=== PATIENT | male | born 1955 | race Caucasian/White ===

== ENCOUNTER 2018-12-24 07:41 | Inpatient (IN) | payer OTHER ==
[~2018-12-24] VITALS: Ht 177.8 cm; Wt 83.0 kg
[~2018-12-24 07:41] MED LIST: ABAC300; ALBU90OI; AMLO5; COZAAR PO; DOCU100 PO; Diovan320 MG; ENOX40I SC; ESCI10 PO; HYDACE5 PO; LISI10 PO; LORA.5 PO; LORA10; METF500; METFORMIN PO; OXYC1TAB11; SERT50; SIMV10 PO
[2018-12-24 08:00] LABS: Calcium, Ionized (POC) 1.17 mmol/L (1.10-1.46); Chloride (POC) 101 mmol/L (98-108); Creatinine (POC) 0.5 mg/dL (0.8-1.3); Glucose (ISTAT POC) 417 mg/dL (70-99); Potassium (POC) 3.8 mmol/L (3.5-5.5); Sodium (POC) 135 mmol/L (135-148); Total CO2 (POC) 22 mmol/L (21-32)
[2018-12-24 08:07] LABS: Hematocrit 44.8 % (37.0-53.0); Mean Corpuscular HGB 30.9 pg (26.0-34.0); Mean Corpuscular HGB Conc 35.7 g/dL (31.5-36.5); Mean Corpuscular Volume 87 fL (80-100); Mean Platelet Volume 8.9 fL (9.1-12.4); Platelet Count 312 K/mm3 (150-400); RDW Coefficient Variation 11.8 % (11.7-14.2); RDW Standard Deviation 37.4 fL (35.1-46.3); Red Blood Cell Count 5.18 M/mm3 (4.30-5.90); White Blood Cell Count 9.08 K/mm3 (4.00-11.30)
[2018-12-24] MEDS ORDERED: Metformin HCl1000 MG PO (08:17)
[2018-12-24 08:22] LABS: International Normalized Ratio 0.96; Prothrombin Time Results 10.2 Sec (9.7-11.5)
[2018-12-24 08:33] LABS: Alanine Aminotransfer (ALT/SGP 35 U/L (12-78); Albumin, Blood 3.7 g/dL (3.4-5.0); Albumin/Globulin Ratio 0.9 (0.8-1.8); Alk Phos 63 U/L (50-136); Anion Gap 11 mmol/L (6-16); Aspartate Aminotrans (AST/SGOT 24 U/L (12-37); Bilirubin, Total 0.7 mg/dL (0.1-1.0); Blood Urea Nitrogen 15 mg/dL (8-24); Bun/Creatinine Ratio 26.4 (12.0-20.0); CO2, Blood 22 mmol/L (21-32); Calcium, Blood 9.3 mg/dL (8.5-10.1); Chloride, Blood 101 mmol/L (98-108); Cholesterol 266 mg/dL (50-200); Creatinine, Blood 0.57 mg/dL (0.60-1.20); Glomerular Filtration Rate >60 (60-); Glucose, Blood 413 mg/dL (70-99); Magnesium, Blood 1.8 mg/dL (1.6-2.4); Potassium, Blood 3.7 mmol/L (3.5-5.5); Sodium, Blood 134 mmol/L (136-145); Total Protein, Blood 7.7 g/dL (6.4-8.2); Troponin I <0.015 ng/mL (0.000-0.040)
[2018-12-24 08:35] LABS: CHOL/HDL RATIO Unable to Calculate; LDL/HDL RATIO Unable to Calculate; Low Density Lipoprotein Chol Unable to Calculate mg/dL (0-110); Triglycerides 1189 mg/dL (30-160); Very Low Density Lipoprot Chol 238 mg/dL (6-32)
[2018-12-24] MEDS ORDERED: L-ARGININE500 MG PO (10:22)
[2018-12-24] MEDS ORDERED: VITAMIN D5000 UNI1 PO (10:23)
[2018-12-24] MEDS ORDERED: SELENIUM200 MCG PO (10:26)
--- NOTE | 2018-12-24 10:30 | NUR ---
ARIVAL TO THE UNIT: PT [facility] AT APPROX 1005, APPEARS TO BE A/O X 3, BUT DROUSY. URINAL INBETWEEN LEGS. RECEIVED REPORT FROM HC STAFF. STENTS PLACED WERE 1 TO THE OM, 1 TO THE LAD, 1 TO THE PROX CIRC AND PT HAS TOTAL OCCULTION TO THE RCA. TR BAND WAS NOTED TO BE IN GOOD WORKING ORDER INFLATED WITH 11CC AT APPROX 1000. NO S/S OF BLEEDING NOTED AT THE SITE, NO REDNESS OR SWELLING NOTED. PT C/O 3/10 CHEST PAIN. NITRO DRIP RUNNING UPON ARIVING WILL TITRATE BP ALLOWS. EDUCATED PT ON THE UNIT AND CALL LIGHT. REVIEWED HEALTH HX. EDUCATED PT ON NEEDING TO TAKE MEDICATIONS DIRECTED.
[2018-12-24 11:45] LABS: Troponin I 0.095 ng/mL (0.000-0.040)
--- NOTE | 2018-12-24 13:57 | NUR ---
CHEST PAIN: PAIN INCREASED TO AN 8/10, 2MG OF MORPHINE GIVEN. PAIN CAME DOWN TO 6/10
--- NOTE | 2018-12-24 14:00 | NUR ---
TR BAND: REMOVED AIR FROM TR BAND AT THIS TIME. LEFT THE BAND ON, WILL REASSESS IN ONE HOUR. SURINGE AT BEDSIDE WITH AIR IN CASE OF EMERGENCY.
--- NOTE | 2018-12-24 14:02 | NUR ---
HIGH GLUCOSE: CALLED LAB FOR GLUCOSE RESULTS FROM 1218 STILL NOT COMPLETE. LAB WILL CALL BACK WHEN COMPLETE.
[2018-12-24 14:28] LABS: Glucose, Blood 529 mg/dL (70-99)
--- NOTE | 2018-12-24 15:00 | NUR ---
RADIAL SITE: TR BAND REMOVED AND TEGADERM PUT IN PLACE OVER PUNCTURE SITE. NO S/S OF BLEEDING NO SWELLING, REDNESS OR TENDERNESS NOTED. PT EDUCATED ON RESTRICTIONS ONCE AGAIN. WILL CONTINUE TO MONITOR.
--- NOTE | 2018-12-24 17:54 | NUR ---
Clinical Visit; Called to room to discuss advance directives. They have shown an interest in filling out paperwork to support wishes. Pt declines any conversation. he states that he is in considerable pain. Pt declines palliative care to leave copy of directive for further review. Updated nurse on conversation.
--- NOTE | 2018-12-24 18:52 | NUR ---
SHIFT SUMMARY: PT HAS CONTINUED TO HAVE CHEST PAIN SINCE RETURNING FROM THE [facility]. NITRO DRIP HAS ASSISTED, BUT HAS NOT ELIMINATED THE PAIN COMPLETELY. IMDUR WAS GIVEN PER ORDERS ALONG WITH MAYLOX. PT HAS SOME FEELINGS OF NAUSEA AND WAS UNABLE TO EAT MORE THAN JELLO OR APPLESAUCE FOR DINNER. BLOOD SUGARS ARE NOTED TO BE VERY HIGH AND INSULIN HAS BEEN GIVEN PER ORDERS. SS OF INSULIN WAS CHANGED FROM LOW SINCE ARIVAL TO THE UNIT, TO HIGH BY THE END OF THE SHIFT. PT STATES FEELING MUCH BETTER THAN PRIOR TO COMING TO THE HOSPITAL, BUT STILL "NOT FEELING WELL". [facility] WAS CALLED TO CONSULT D/T PT AND REQUESTING ASSISTANCE IN COMPLETING AN ADVANCE DIRECTIVE. PT STATES ATTEMPTED TO FILL ONE OUT IN THE PAST, BUT HAD DIFFICULTY UNDERSTANDING. DR BLISS AND THIS RN EDUCATED PT AND FAMILY EXTENSIVLY ON THE NEED TO CONTINUE TAKING MEDICATIONS DIRECTED AND SOME RISKS OF STOPPING. WILL CONTINUE TO MONITOR AND REPORT TO ONCOMING RN.
[2018-12-24 19:04] LABS: Anion Gap 11 mmol/L (6-16); Blood Urea Nitrogen 15 mg/dL (8-24); CO2, Blood 22 mmol/L (21-32); CPK Creatine Kinase 890 U/L (39-308); Calcium, Blood 8.8 mg/dL (8.5-10.1); Chloride, Blood 96 mmol/L (98-108); Creatinine, Blood 0.58 mg/dL (0.60-1.20); Glomerular Filtration Rate >60 (60-); Glucose, Blood 432 mg/dL (70-99); Potassium, Blood 4.3 mmol/L (3.5-5.5); Sodium, Blood 129 mmol/L (136-145)
[2018-12-24 19:21] LABS: Creatine Kinase MB 59.9 ng/mL (0.0-3.6); Creatine Kinase MB Index 6.7 (0.0-4.0)
--- NOTE | 2018-12-24 20:33 | NUR ---
CARE ASSUMED CARE AND REPORT ASSUMED FROM FAITH Ordonez RN. PT SITTING UP IN BED. COMPLAINS OF PERSISTENT NAUSEA FOR FEW HOURS BUT DENIES ANY VOMITING. MD BLISS CALLED AND NOTIFIED OF NAUSEA; T.O. FOR ZOFRAN 4 MG GIVEN AND WAS TOLD TO TITRATE NITRO TO MAINTAIN SBP 110-120. ZOFRAN ADMINISTERED; WILL MONITOR RESPONSE. PT COMPLAINS OF CHEST PAIN AT 4/10 AT THIS TIME. NITRO GTT DECREASED TO 20, AND NOW 15 MCG. SBP 95. WILL MONITOR CHEST PAIN AND BP. R RADIAL SITE CLEAN, DRY, INTACT WITH SOME SURROUNDING BRUISING. R ARM IN ARMBOARD. INSULIN GIVEN THIS EVENING FOR BLOOD SUGAR CONTROL. CALL LIGHT WITHIN REACH. NSR, HR 70S. WILL CONTINUE TO MONITOR.
--- NOTE | 2018-12-24 23:31 | NUR ---
REASSESSMENT PT SLEEPING BUT AWAKENS EASILY. NSR, HR 70S. BP 104/75. NITRO GTT HAS BEEN OFF SINCE 2299. PT STATES HE IS CHEST PAIN FREE AND NAUSEA HAS RESOLVED. AFEBRILE. CALL LIGHT WITHIN REACH. WILL CONTINUE TO MONITOR.
[2018-12-25 03:24] LABS: BASOPHILS ABSOLUTE AUTO 0.01 K/mm3 (0.00-0.23); BASOPHILS PERCENT AUTO 0 % (0-2); EOSINOPHILS ABSOLUTE AUTO 0.02 K/mm3 (0.00-0.68); EOSINOPHILS PERCENT AUTO 0 % (0-6); Hematocrit 39.5 % (37.0-53.0); Hemoglobin 14.1 g/dL (13.5-17.5); IMMATURE GRAN ABSOLUTE AUTO 0.03 K/mm3 (0.00-0.10); IMMATURE GRAN PERCENT AUTO 0 % (0-1); LYMPHOCYTES ABSOLUTE AUTO 1.62 K/mm3 (0.84-5.20); LYMPHOCYTES PERCENT AUTO 12 % (21-46); MONOCYTES ABSOLUTE AUTO 1.27 K/mm3 (0.16-1.47); MONOCYTES PERCENT AUTO 10 % (4-13); Mean Corpuscular HGB 31.8 pg (26.0-34.0); Mean Corpuscular HGB Conc 35.7 g/dL (31.5-36.5); Mean Corpuscular Volume 89 fL (80-100); Mean Platelet Volume 8.8 fL (9.1-12.4); NEUTROPHILS ABSOLUTE AUTO 10.24 K/mm3 (1.96-9.15); NEUTROPHILS PERCENT AUTO 78 % (41-73); Platelet Count 316 K/mm3 (150-400); RDW Coefficient Variation 12.1 % (11.7-14.2); RDW Standard Deviation 39.3 fL (35.1-46.3); Red Blood Cell Count 4.44 M/mm3 (4.30-5.90); White Blood Cell Count 13.19 K/mm3 (4.00-11.30)
--- NOTE | 2018-12-25 03:41 | NUR ---
REASSESSMENT PT REMAINS CHEST PAIN FREE AT THIS TIME. C/O MILD HEADACHE. NITRO GTT HAS BEEN OFF SINCE 2300. R RADIAL SITE REMAINS CLEAN, DRY, INTACT, BUT HAS SOME SURROUNDING SWELLING ON WRIST. NSR, HR 70S. WILL CONTINUE TO MONITOR.
[2018-12-25 03:50] LABS: Alanine Aminotransfer (ALT/SGP 52 U/L (12-78); Albumin, Blood 3.5 g/dL (3.4-5.0); Albumin/Globulin Ratio 0.9 (0.8-1.8); Alk Phos 56 U/L (50-136); Anion Gap 11 mmol/L (6-16); Aspartate Aminotrans (AST/SGOT 277 U/L (12-37); Bilirubin, Total 0.7 mg/dL (0.1-1.0); Blood Urea Nitrogen 20 mg/dL (8-24); Bun/Creatinine Ratio 34.1 (12.0-20.0); CO2, Blood 24 mmol/L (21-32); Calcium, Blood 8.8 mg/dL (8.5-10.1); Chloride, Blood 97 mmol/L (98-108); Cholesterol 271 mg/dL (50-200); Creatinine, Blood 0.59 mg/dL (0.60-1.20); Globulin, Blood 3.9 g/dL (2.2-4.0); Glomerular Filtration Rate >60 (60-); Glucose, Blood 300 mg/dL (70-99); Potassium, Blood 3.7 mmol/L (3.5-5.5); Sodium, Blood 132 mmol/L (136-145); Total Protein, Blood 7.4 g/dL (6.4-8.2)
[2018-12-25 04:08] LABS: CHOL/HDL RATIO Unable to Calculate; CPK Creatine Kinase 1375 U/L (39-308); LDL/HDL RATIO Unable to Calculate; Low Density Lipoprotein Chol Unable to Calculate mg/dL (0-110); Triglycerides 1066 mg/dL (30-160); Very Low Density Lipoprot Chol Unable to Calculate mg/dL (6-32)
[2018-12-25 04:26] LABS: Creatine Kinase MB 130.7 ng/mL (0.0-3.6); Creatine Kinase MB Index 9.5 (0.0-4.0)
--- NOTE | 2018-12-25 06:35 | NUR ---
SHIFT SUMMARY PT SLEPT MOST OF NIGHT. NITRO GTT TURNED OFF AT 2300 AND BP HAS BEEN WNL SINCE THEN. R RADIAL SIGHT HAS BEEN CLEAN AND DRY AND ARM REMAINED IN ARMBOARD ENTIRE SHIFT. ZOFRAN GIVEN AT START OF SHIFT; NAUSEA RESOLVED SHORTLY AFTER. STATED CHEST PAIN IMPROVED AT APPROX 0000. ADJUSTS SELF IN BED. IV SALINE LOCKED. REMAINED IN NSR ENTIRE SHIFT, HR 70-80S. TYLENOL PO GIVEN THIS AM FOR C/O MILD HEADAHCE. WILL GIVE BEDSIDE, HANDOFF REPORT TO DAY RN.
--- NOTE | 2018-12-25 06:45 | NUR ---
SHIFT SUMMARY PT REMAINED INTUBATED ENTIRE SHIFT. 2 SEDATION VACATIONS DURING SHIFT AND 15 MINUTE WEAN DONE DURING 2ND VACATION; SEE NOTE. UNRESPONSIVE ENTIRE SHIFT. WHEN OFF SEDATION, PT HAS SPASTIC MUSCULOSKELETAL MOVEMENTS. DURING ORAL CARE, PT CLENCHES TEETH AND SLIGHTLY MOVES HEAD SIDE TO SIDE. NO PURPOSEFUL MOVEMENTS. HAS REMAINED IN NSR, HR 80-90S. BP ELEVATED DURING SHIFT. NITRO GTT INFUSED ENTIRE SHIFT AT 200 MCG. PROPOFOL NOW INFUSING AT 15 MCG. TOLERATING TF AT GOAL RATE, RESIDUALS 240, 100, AND 100. NO RESTRAINTS; PT DOES NOT ATTEMPT IN ANY WAY TO REACH WITH UPPER EXTREMITIES. BED BATH AND LINEN CHANGE COMPLETED. CPT DONE FEW TIMES DURING NIGHT TOLERATED. PT HAD 4 SOFT, TARRY BOWEL MOVEMENTS. RECTAL TUBE INSERTED AT 0630. FAMILY SLEPT AT BEDSIDE. ANURIC DURING NIGHT; 50 ML FROM BRAR CATH. WILL GIVE BEDSIDE, HANDOFF REPORT TO DAY RN.
--- NOTE | 2018-12-25 07:45 | NUR ---
AM ASSESSMENT: PT IS ALERT AND ORIENTED X3. PLEASANT AND COOPERATIVE WITH CARE. APPEARS ANXIOUS AT TIMES RE: BEING THE HOSPITAL/MEDICAL CONDITION/AMT OF MEDICATIONS HE WILL BE DISCHARGED HOME ON. SPOKE WITH PT AND AT LENGTH RE: IMPORTANCE OF MEDICATIONS COMPLIANCE, ILL AFFECTS OF UNMANAGED DIABETES, MEDICATIONS, CURRENT CONDITION, AND F/U CARE NEEDED. LUNGS ARE CLEAR T/O BILATERALLY. SP02 SATS >90% ON RA. HR REGULAR, SR-60'S RANGE. PT DENIES ANY CHEST PAIN/PRESSURE. PT HAS POOR TO FAIR APPETITE AND REPORTS IT IS R/T BEING EMBARASSED TO HAVE A BM AT THE HOSPITAL, BUT REPORTS HE HASN'T FELT HUNGRY SINCE NAUSEA OCCURRED ON NOC SHIFT. PT DENIES ANY CURRENT NAUSEA. -FULL CODE -MONITOR CARDIAC STATUS, TNX TO PCU IF TROPONINS TRENDING DOWN AND PT CHEST PAIN FREE. -CBG'S AC/HS
[2018-12-25 09:19] LABS: Creatine Kinase MB 71.3 ng/mL (0.0-3.6)
[2018-12-25 09:33] LABS: Creatine Kinase MB Index 5.7 (0.0-4.0); Troponin I 52.9 ng/mL (0.000-0.040)
--- NOTE | 2018-12-25 10:39 | NUR ---
PT UPDATE: TROPONIN REMAINS CRITICAL, HOWEVER, TRENDING DOWN. WILL CONTINUE TO MONITOR TROPONIN, CK/MB. PT CHANGED TO PCU STATUS, PER DR BLISS.
--- NOTE | 2018-12-25 12:06 | NUR ---
PT UPDATE: PT REMAINS CHEST PAIN/PRESSURE FREE. PT REPORTS MILD, INTERMITTENT NAUSEA, BUT DENIES ANY AT THIS CURRENT TIME. PT REPORTS HEADACHE PAIN 4/10 AT THIS TIME. PT STARTED ON ISOSORBIDE THIS AM AND PT REPORTS HEADACHE PAIN WITH USE OF NTG. AGAIN, TALKED AT LENGTH WITH PT ABOUT NEW MEDICATIONS AND IMPORTANCE OF MEDICATION COMPLIANCE.
--- NOTE | 2018-12-25 16:02 | NUR ---
REPORTED OFF TO NAVYA GREER WHOM WILL ASSUME CARE OF THIS PT. PT TO TRANSFER TO PCU-7.
--- NOTE | 2018-12-25 16:43 | NUR ---
PT AMBULATED TO PCU-7 WITH CHUCK DAVISON. CHART/MEDS/PERSONAL BELONGINGS SENT WITH PT.
--- NOTE | 2018-12-25 16:58 | NUR ---
arrived from ICU, a+o, NSR 72 Pulse, lung sounds clear, wrist site no s/sx of infection or bleeding, cap refil <3 in R hand
[2018-12-25 17:46] LABS: Creatine Kinase MB Index 4.1 (0.0-4.0)
--- NOTE | 2018-12-25 19:07 | NUR ---
A+O, ELEVATED TEMP, TRIED VARIUS NONPHARMALOGICAL INTERVENTIONS THEN TYLENOL, DENIES SWEATS BUT IS FLUSHED HE WAS WHEN HE ARRIVED IN DPT, BRUISING REMAINS ON WRIST FROM SURGERY BUT NO BLEEDING OR TENDERNESS, CALL LIGHT IN REACH, SITTING UP IN BED TALKING ON PHONE, ROOM AIR, SALINE LOCKED
[2018-12-26 01:52] LABS: Creatine Kinase MB 12.8 ng/mL (0.0-3.6); Creatine Kinase MB Index 2.5 (0.0-4.0)
[2018-12-26 01:54] LABS: Troponin I 23.1 ng/mL (0.000-0.040)
--- NOTE | 2018-12-26 04:04 | NUR ---
ASSUMED CARE APPROXIMATELY 1900; PT A&O; INDEPENDENT TO BATHROOM; PT STATES HIS APPETITE HAS IMPROVED SINCE PREVIOUS DAY; BRUISING ON R ARM ANGIO SITE SLIGHTLY IMPROVED; CAP REFILL <3 SEC; O2 SATS >90 ON SECOND DIGIT R HAND; PT DENIES PAIN; TROPONIN RESULTS @ 0115 23.1 TRENDING DOWN; PT ASLEEP FOR SEVERAL HOURS; CALL LIGHT IN REACH; BED IN LOWEST POSITION; BATHROOM LIGHT ON; WILL CONTINUE TO MONITOR AND ASSESS UNTIL HAND OFF TO DAY SHIFT RN.
--- NOTE | 2018-12-26 09:40 | NUR ---
AM NOTE PT ALERT AND OREINTED. DENIED DISCOMFORT EXCEPT BEING TIRED. SR. NO ECTOPY. TALKED ABOUT HOME LIFE. PT STOPPED TAKING ALL HIS MEDICATIONS AND CHECKING CBG IN [place] BECAUSE HE DIDN'T THINK IT WAS DOING HIM ANY GOOD. WE TALKED ABOUT DEPRESSION AND HOPELESSNESS. HE HAS RECENTLY RETIRED AND STOPPED DRIVING D/T ANXIETY. HE FEELS ISOLATED AND LONELY. HE IS TALKING ABOUT FINDING A TIP PUNCHER FLUFF JOB JUST TO GET OUT OF THE HOUSE. TALKED ABOUT HOME CARE AND RIGHT RADIAL TR BAND SITE. CONTINUE POT.
[2018-12-26 15:52] LABS: Source, Urine Clean Catch
[2018-12-26 15:56] LABS: Bilirubin, Urine Neg (Neg); Blood, Urine Neg (Neg); Glucose Qualitative, Urine 4+ (Neg); Ketones, Urine 1+ (Neg); Leukocyte Esterase, Urine Neg (Neg); Nitrite, Urine Neg (Neg); Protein, Urine 3+ (Neg); Urobilinogen, Urine NORM (Normal)
[2018-12-26 16:04] LABS: Appearance, Urine Clear (Clear); Color, Urine Yellow (P-Yellow)
[2018-12-26 16:07] LABS: Red Blood Cells, Urine Rare /hpf (0-2)
[2018-12-26 16:08] LABS: Squamous Epithelial Cells Rare /hpf (Few); White Blood Cells, Urine Rare /hpf (0-5)
[2018-12-26 16:09] LABS: Bacteria Few /hpf; Mucus Light (0-Heavy)
[2018-12-26 16:10] LABS: Hyaline Casts 0-2 /lpf (0-2)
--- NOTE | 2018-12-26 18:30 | NUR ---
EVENING NOTE PT RESTING QUIETLY. SR. NO CP/SOB. VSS. BLOOD SUGARS STILL HIGH BUT BETTER. PT APPETITE HAS RETURNED. HE IS VERY CURIOUS ABOUT [employer] DIET AND LIFE STYLE CHANGES. OFFERED CARDIAC REHAB IN A COUPLE WEEKS. HE IS AGREEABLE. 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 SO A HIGH SALT/SUGAR DIET. TALKED WITH HIM ABOUT HELPING WITH THE COOKING. HE IS RETIRED AND WANTS SOMETHING TO DO. HE SAID HE WOULD THINK ABOUT IT. CONTINUE POT.
--- NOTE | 2018-12-27 02:37 | NUR ---
VTACH AT APPROX 0233 PATIENT HAD AN APPROX 10 SECOND RUN OF VTACH PER THE TELE MONITOR. PATIENT APPEARED ASLEEP AND ASYMPTOMATIC WHEN CHECKED ON BY STAFF. WILL CONTINUE TO MONITOR.
--- NOTE | 2018-12-27 05:28 | NUR ---
SHIFT SUMMARY PATIENT PLEASENT AND COOPERATIVE THROUGHOUT THE NIGHT. PATIENT APPEARED TO NAP ON AND OFF THROUGHOUT THE NIGHT. PATIENT DENED ANY CHEST PAIN LAST NIGHT. NO FURTHER RUNS OF VTACH NOTED AT THIS TIME. NO CHANGES NOTED TO THE BRUISING TO THE RIGHT WRIST FROM THE ANGIO. ARMBOARD IN PLACE. PATIENT CURRENTLY APPEARS TO BE ASLEEP. PATIENT INDEPENDENT IN ROOM. WILL CONTINUE TO MONITOR PATIENT AND REPORT TO ONCOMING RN.
[2018-12-27] MEDS ORDERED: METF500 PO (10:32)
[2018-12-27] MEDS ORDERED: Aspir 8181 MG PO (10:37)
[2018-12-27] MEDS ORDERED: SERT25 PO (10:37)
[2018-12-27] MEDS ORDERED: ATOR80 PO (10:38)
[2018-12-27] MEDS ORDERED: INSULANPEN SC (10:40)
[2018-12-27] MEDS ORDERED: METO25 PO (10:45)
[2018-12-27] MEDS ORDERED: Isosorbide Mono30 MG PO (10:45)
[2018-12-27] MEDS ORDERED: TICA90TA PO (10:47)
[2018-12-27] MEDS ORDERED: NITR.4SL SL (10:47)
--- NOTE | 2018-12-27 15:55 | NUR ---
DISCHARGE HOME' PT DISCHARGE HOME. PT REFUSED A W/C OUT. WALKED WITH . VSS. IV REMOVED WITH CANNULA INTACT. PRESSURE DRESSING APPLIED TO SITES X2. RIGHT RADIAL SITE CD&I. TOOK OPSITE OFF. HEMATOMA STARTING TO YELLOW. REVIEW OF DISCHARGE ORDERS EXTENSIVE. CONTINUE POT.
== END 2018-12-27 16:02 | disposition home or self-care (01) | DRG 247 ==
LOC: ER 07:41 → ICUW 07:49 → PCU 12-25 16:45
PROVIDERS: Emergency Medicine; ADMIT Internal Medicine Interventional Cardiology
PROC: 4A023N7 Measurement of Cardiac Sampling and Pressure, Left Heart, Percutaneous Approach (ICD-10-PCS; principal; 2018-12-24)
PROC: 027236Z Dilation of Coronary Artery, Three Arteries with Three Drug-eluting Intraluminal Devices, Percutaneous Approach (ICD-10-PCS; 2018-12-24)
PROC: B211YZZ Fluoroscopy of Multiple Coronary Arteries using Other Contrast (ICD-10-PCS; 2018-12-24)
DX: I21.3 ST elevation (STEMI) myocardial infarction of unspecified site (principal); I25.82 Chronic total occlusion of coronary artery; I10 Essential (primary) hypertension; E78.1 Pure hyperglyceridemia; E11.65 Type 2 diabetes mellitus with hyperglycemia; Z79.4 Long term (current) use of insulin
CPT/HCPCS: 36415; 76937; 80047; 80048; 80053; 80061; 81001; 82550; 82553; 82947; 83036; 83735; 83880; 84484; 85014; 85025; 85027; 85347; 85610; 85730; 86850; 86900; 86901; 93005; 93010; 93306; 93454; 96374; 99152; 99153; 99285-25; A9270; C1725; C1769; C1874; C1887; C1894; C9601; C9606; J0360; J0461; J1170; J1644; J1815; J1940; J2250; J2270; J2405; J3010; J3246; J7030; J7040; Q9967

== ENCOUNTER 2020-09-04 08:17 | Day surgery (SDC) | payer OTHER ==
[~2020-09-04] VITALS: Ht 177.8 cm; Wt 84.0 kg
[~2020-09-04 08:17] MED LIST changes: +ATOR80 PO; +Aspir 8181 MG PO; +Benicar Hct 201 EACH PO; +GABA300 PO; +INSULANPEN SC; +Isosorbide Mono30 MG PO; +JARDIANCE25 MG PO; +Januvia100 MG PO; +L-ARGININE500 MG PO; +METF500 PO; +METO25 PO; +Metformin HCl1000 MG PO; +NITR.4SL SL; +SELENIUM200 MCG PO; +SERT25 PO; +TICA90TA PO; +VITAMIN D5000 UNI1 PO
[2020-09-04] MEDS ORDERED: SITA100T2 PO (12:12)
--- NOTE | 2020-09-04 15:50 | NUR ---
PT TO RECOVERY ROOM POST PROCEDURE. PT DROWSY, BUT EASILY ROUSABLE, ANSWERING QUESTIONS APPROPRIATELY; DENIES PAIN POST PROCEDURE. MONITOR SB 50'S, B/P 121/60, AFEBRILE, SPO2 93% RA. R GROIN SITE NO SWELLING/HEMATOMA, TEGADERM DRSG INTACT; ANGIO SEAL DEPLOYED. RLE PULSES DOP X 2, LLE PULSES 1+ X 2. PT'S UPDATED WITH PT'S PERMISSION.
[2020-09-04] MEDS ORDERED: CLOP75 PO (16:17)
--- NOTE | 2020-09-04 16:35 | NUR ---
REPORT TO MARLENA MCKEON RN; ALL QUESTIONS ANSWERED.
--- NOTE | 2020-09-04 16:52 | NUR ---
ASSUMED CARE FROM NAVYA DAMON. SBAR RECEIVED. RIGHT GROIN, ANGIOSEAL WITH DRESSING CDO. PATIENT RESTING WITH HOB UP 15-20 DEGREES. PLAN TO AMBULATE AT 1730ISH. CALL LIGHT IN REACH, MONITOR IN USE. NO PAIN NOTED FROM THE PATIENT.
--- NOTE | 2020-09-04 17:18 | NUR ---
PATIENT SITTING UP IN BED, MEAL SERVED AND PATIENT IS FEEDING SELF. VVS. NO PAIN NOTED. RIGHT GROIN SITE UNCHANGED, SOFT, NON-TENDER AND NO HEMATOMA OR BLEEDING NOTED.
--- NOTE | 2020-09-04 17:37 | NUR ---
PATIENT UP TO THE RESTROOM. VVS. RIGHT GROIN STABLE. VOIDED. BACK TO SITTING ON THE SIDE OF THE BED AND FINISHED MEAL.
--- NOTE | 2020-09-04 17:47 | NUR ---
REVIEWED ALL DISCHARGE INSTRUCTIONS WITH PATIENT. COPIES GIVEN AND SIGNED. ANGIOSEAL PAMPHLET AND CARE REVIEWED ALSO. PIV REMOVED. PRESSURE DRESSING APPLIED AND CATHETER TIP INTACT.
--- NOTE | 2020-09-04 18:08 | NUR ---
PATIENT DISCHARGED HOME AFTER DRESSING AND GATHERING ALL BELONGINGS. DISCHARGE INSTRUCTIONS IN HAND. GROIN SITE STABLE. WHEELCHAIRED TO THE [place] ENTRANCE AND DISCHARGED HOME.
== END 2020-09-04 18:05 | disposition home or self-care (01) ==
LOC: MHTC 08:17
DX: E11.51 Type 2 diabetes mellitus with diabetic peripheral angiopathy without gangrene (principal); I70.223 Atherosclerosis of native arteries of extremities with rest pain, bilateral legs; I71.4 Abdominal aortic aneurysm, without rupture; I10 Essential (primary) hypertension; I25.10 Atherosclerotic heart disease of native coronary artery without angina pectoris; E11.42 Type 2 diabetes mellitus with diabetic polyneuropathy; E78.5 Hyperlipidemia, unspecified; I25.2 Old myocardial infarction; Z95.5 Presence of coronary angioplasty implant and graft; Z87.891 Personal history of nicotine dependence; Z79.82 Long term (current) use of aspirin; Z79.84 Long term (current) use of oral hypoglycemic drugs
CPT/HCPCS: 37225; 37228; 37232; 75625; 75716; 75774; 76937; 82947; 85347; 99152; 99153; C1724; C1725; C1760; C1769; C1884; C1887; C1894; C2623; J1644; J2250; J3010; J7030; Q9967

== ENCOUNTER → 2021-02-15 | Outpatient (CLI) | payer OTHER ==
[~2021-02-15] MED LIST changes: +CLOP75 PO; +SITA100T2 PO
== END | disposition home or self-care (01) ==
LOC: LAB SHORT 08:02
DX: D22.61 Melanocytic nevi of right upper limb, including shoulder (principal)
CPT/HCPCS: 88305

== ENCOUNTER 2022-07-09 12:23 | Emergency (ER) | payer OTHER ==
[~2022-07-09] VITALS: Ht 177.8 cm; Wt 90.7 kg
[2022-07-09 13:03] LABS: BASOPHILS ABSOLUTE AUTO 0.04 K/mm3 (0.00-0.23); BASOPHILS PERCENT AUTO 1 % (0-2); EOSINOPHILS ABSOLUTE AUTO 0.28 K/mm3 (0.00-0.68); EOSINOPHILS PERCENT AUTO 4 % (0-6); Hemoglobin 12.5 g/dL (13.5-17.5); IMMATURE GRAN ABSOLUTE AUTO 0.01 K/mm3 (0.00-0.10); IMMATURE GRAN PERCENT AUTO 0 % (0-1); LYMPHOCYTES ABSOLUTE AUTO 2.04 K/mm3 (0.84-5.20); LYMPHOCYTES PERCENT AUTO 32 % (21-46); MONOCYTES ABSOLUTE AUTO 0.63 K/mm3 (0.16-1.47); MONOCYTES PERCENT AUTO 10 % (4-13); Mean Corpuscular HGB 31.2 pg (26.0-34.0); Mean Corpuscular HGB Conc 35.7 g/dL (31.5-36.5); Mean Corpuscular Volume 87 fL (80-100); Mean Platelet Volume 8.5 fL (9.1-12.4); NEUTROPHILS ABSOLUTE AUTO 3.33 K/mm3 (1.96-9.15); NEUTROPHILS PERCENT AUTO 53 % (41-73); Platelet Count 250 K/mm3 (150-400); RDW Coefficient Variation 12.2 % (11.7-14.2); RDW Standard Deviation 39.6 fL (35.1-46.3); Red Blood Cell Count 4.01 M/mm3 (4.30-5.90); White Blood Cell Count 6.33 K/mm3 (4.00-11.30)
[2022-07-09 13:16] LABS: Albumin, Blood 3.7 g/dL (3.4-5.0); Bilirubin, Total 0.4 mg/dL (0.1-1.0); Bun/Creatinine Ratio 16.8 (12.0-20.0); Calcium, Blood 8.8 mg/dL (8.5-10.1); Creatinine, Blood 0.83 mg/dL (0.60-1.20); Globulin, Blood 3.7 g/dL (2.2-4.0); Potassium, Blood 3.9 mmol/L (3.5-5.5); Total Protein, Blood 7.4 g/dL (6.4-8.2)
== END 2022-07-09 16:17 | disposition home or self-care (01) ==
LOC: ER 12:23
PROVIDERS: Emergency Medicine
DX: I20.8 Other forms of angina pectoris (principal); I10 Essential (primary) hypertension; E11.9 Type 2 diabetes mellitus without complications; I25.2 Old myocardial infarction; E78.5 Hyperlipidemia, unspecified; Z95.5 Presence of coronary angioplasty implant and graft; Z79.84 Long term (current) use of oral hypoglycemic drugs; Z79.82 Long term (current) use of aspirin; Z95.1 Presence of aortocoronary bypass graft; Z87.891 Personal history of nicotine dependence
CPT/HCPCS: 36415; 71046; 80053; 83880; 84484; 85025; 93005; 93010

== ENCOUNTER 2022-07-23 08:33 | Day surgery (SDC) | payer OTHER ==
[~2022-07-23] VITALS: Ht 177.8 cm; Wt 95.3 kg
[2022-07-23] VITALS (14 sets, daily range): BP systolic 111–180; BP diastolic 59–93
[2022-07-23] MEDS ORDERED: NOVOLIN N100 UNIT/2 SQ (09:01)
--- NOTE | 2022-07-23 11:20 | NUR ---
PATIENT ARRIVED TO RECOVERY ROOM SITTING UPRIGHT IN RECLINER. R RADIAL TR BAND FULLY INFLATED. SITE C/D/I SOFT/NONTENDER, NO EVIDENCE OF HEMATOMA. PATIENT DENYING ANY CP. VSS ON ROOM AIR.
--- NOTE | 2022-07-23 13:28 | NUR ---
INITIAL 3 CC OF AIR REMOVED FROM R RADIAL TR BAND. SITE C/D/I SOFT/NONTENDER, NO EVIDENCE OF HEMATOMA. PATIENT DENYING ANY CP. VSS ON ROOM AIR. PATIENT TOLERATING PO INTAKE WELL.
--- NOTE | 2022-07-23 13:53 | NUR ---
ALL AIR REMOVED FROM R RADIAL TR BAND. SITE C/D/I SOFT/NONTENDER, NO EVIDENCE OF HEMATOMA. PT DENYING ANY CP. DISCHARGE PAPERWORK AND INSTRUCTIONS REVIEWED WITH PATIENT AND SPOUSE AT BEDSIDE. ALL QUESTIONS ANSWERED. VSS ON ROOM AIR.
--- NOTE | 2022-07-23 14:37 | NUR ---
DR ARCINIEGA IN EARLIER TO DISCUSS PLAN OF CARE W PT AND , PT DRESSED, IV DC'D INTACT, PT DC'D BY WC W DRIVING PT HOME, PT GIVEN DVD OF CATH FOR REVIEW WITH CARDIOLOGY SURGEON IN [place]
== END 2022-07-23 14:41 | disposition home or self-care (01) ==
LOC: MHTC 08:33
DX: I25.119 Atherosclerotic heart disease of native coronary artery with unspecified angina pectoris (principal); R07.9 Chest pain, unspecified; I74.3 Embolism and thrombosis of arteries of the lower extremities; E11.9 Type 2 diabetes mellitus without complications; E78.5 Hyperlipidemia, unspecified; E66.9 Obesity, unspecified; I10 Essential (primary) hypertension; I25.2 Old myocardial infarction; J44.9 Chronic obstructive pulmonary disease, unspecified
CPT/HCPCS: 76937; 93458; 99152; 99153; C1769; C1887; C1894; J1644; J2250; J3010; J7030; J7050; Q9967

== ENCOUNTER 2023-02-21 11:33 | Emergency (ER) | payer OTHER ==
[~2023-02-21] VITALS: Ht 177.8 cm; Wt 89.8 kg
[~2023-02-21 11:33] MED LIST changes: +NOVOLIN N100 UNIT/2 SQ
[2023-02-21 11:38] VITALS: BP 164/81
== END 2023-02-21 11:45 | disposition home or self-care (01) ==
LOC: ER 11:33
DX: I10 Essential (primary) hypertension (principal); E11.9 Type 2 diabetes mellitus without complications; I25.2 Old myocardial infarction; E78.5 Hyperlipidemia, unspecified; Z79.84 Long term (current) use of oral hypoglycemic drugs; Z79.82 Long term (current) use of aspirin; Z79.899 Other long term (current) drug therapy; Z95.1 Presence of aortocoronary bypass graft; Z96.641 Presence of right artificial hip joint
CPT/HCPCS: 99282

== ENCOUNTER 2024-05-13 07:43 | Day surgery (SDC) | payer OTHER ==
[~2024-05-13] VITALS: Ht 177.8 cm; Wt 91.3 kg
[~2024-05-13 07:43] MED LIST changes: +ATOR80; -ATOR80 PO; +INSULIN AS100 UNIT/8 SQ
[2024-05-13] MEDS ORDERED: CeFAZolin Sodium 2,000 MG VIAL ONE (08:10)
[2024-05-13] MEDS ORDERED: OXYCODONE-ACET1 EAC3 (08:23)
[2024-05-13] MEDS ORDERED: MINOCYCLINE HC100 M2 (08:23)
[2024-05-13] MEDS ORDERED: AMLODIPINE BESYL5 MG PO (08:23)
[2024-05-13] MEDS ORDERED: Bupivacaine 0.5% HCl 5 MG/ML 30MLVIAL ONE (08:29)
[2024-05-13] MEDS ORDERED: Dexamethasone Sod Phos 10 MG/ML 1ML VIAL ONE (08:29)
[2024-05-13] MEDS ORDERED: Ondansetron HCl 2 MG / ML 2ML Vial ONE (08:29)
[2024-05-13] MEDS ORDERED: ATOR80 PO (08:32)
[2024-05-13] MEDS ORDERED: Ropivacaine 0.5% HCL/PF 5 MG/ML 30ML Vial ONE (08:54)
[2024-05-13] MEDS ORDERED: Lactated Ringer's 1,000 ML IV ONE ×3 (09:05→10:25)
--- NOTE | 2024-05-13 09:09 | NUR ---
05/13/24 0909 Aniyah Odom 0850: NOTIFIED DR LUCIA AND DR DUPONT THAT PATIENT LAST TOOK HIS ASPIRIN AND PLAVIX ON 05/10/24. PER DR LUCIA AND DR DUPONT OK TO PROCEED. TODAY'S EKG SHOWN TO DR LUCIA AND DR DUPONT. RECENT ECHO EXAMINED BY DR DUPONT AND DR LUCIA.
[2024-05-13] MEDS ORDERED: propofoL 20 ML IV ONE ×2 (09:16→10:58)
[2024-05-13] MEDS ORDERED: FentaNYL Citrate 50 MCG/ML 2 ML Injection ONE ×2 (09:21→11:11)
[2024-05-13] MEDS ORDERED: Midazolam HCl 1MG / ML 2ML Vial ONE (09:21)
[2024-05-13] MEDS ORDERED: Rocuronium Bromide 10 MG/ML 5ML Injection IV ONE (09:48)
[2024-05-13] MEDS ORDERED: Phenylephrine HCl 100 MCG/ML-NS 10MLSYR (1MG/10ML) ONE (09:48)
--- NOTE | 2024-05-13 10:15 | NUR ---
05/13/24 Singh5 Pepper Napoles PT HAS PREVIOUS HEALING INCISION SITE TOP OF RIGHT FOOT, PER DR DUPONT TEGDINESH APPLIED OVER WOUND AND OK TO PROCEED
[2024-05-13] MEDS ORDERED: ePHEDrine Sulfate 50 MG/ML 1ML Injection ONE (10:49)
[2024-05-13] MEDS ORDERED: Sugammadex Sodium 200 MG/2ML SDV (100 MG/ML) ONE (11:07)
--- NOTE | 2024-05-13 11:38 | NUR ---
05/13/24 1138 Jhoana Martini RYAN 175 AT 1136. S
[2024-05-13 12:07] VITALS: BP 126/73
--- NOTE | 2024-05-13 12:08 | NUR ---
05/13/24 1208 Haven Arredondo PT SITTING UP IN RECLINER DRINKING CRANBERRY JUICE W/O COMPLAINT. PT PIVOT TRANSFERRED FROM CART TO RECLINER W/ ASSIST. PT'S RLE ELEVATED & ICED PER ORDER. VSS, ON RA. NO VISIBLE SIGNS OF DISTRESS NOTED.
== END 2024-05-13 12:38 | disposition home or self-care (01) ==
LOC: ORSCSDS 07:43
PROVIDERS: Podiatrist Foot & Ankle Surgery
PROC: 0LQN0ZZ Repair Right Lower Leg Tendon, Open Approach (ICD-10-PCS; principal; 2024-05-13 09:30)
DX: S86.011A Strain of right Achilles tendon, initial encounter (principal); T81.30XA Disruption of wound, unspecified, initial encounter; I10 Essential (primary) hypertension; I25.10 Atherosclerotic heart disease of native coronary artery without angina pectoris; E78.5 Hyperlipidemia, unspecified; F17.210 Nicotine dependence, cigarettes, uncomplicated; G47.33 Obstructive sleep apnea (adult) (pediatric); E11.42 Type 2 diabetes mellitus with diabetic polyneuropathy; E11.51 Type 2 diabetes mellitus with diabetic peripheral angiopathy without gangrene; E11.621 Type 2 diabetes mellitus with foot ulcer; Z79.84 Long term (current) use of oral hypoglycemic drugs; Z79.4 Long term (current) use of insulin; Z79.02 Long term (current) use of antithrombotics/antiplatelets; Z79.899 Other long term (current) drug therapy; Z79.82 Long term (current) use of aspirin
CPT/HCPCS: 82947; C1713; J0690; J1100; J2250; J2371; J2405; J2704; J2795; J3010; J7120